=== PATIENT | male | born 1990 | race Caucasian/White ===

== ENCOUNTER → 2018-06-07 | Day surgery (SDC) | payer OTHER ==
[2018-05-29 10:36] VITALS: Ht 175.3 cm; Wt 70.5 kg
[~2018-06-07] VITALS: Ht 175.3 cm; Wt 70.5 kg
[~2018-06-07] MED LIST: CEFAZOLIN 2000MG IV PUSH 15 ML IV SCH; LACTATED RINGER'S 1000ML 1,000 ML IV SCH
== END | disposition home or self-care (01) ==
LOC: EDSTATUS 07:45 → C.PAT 13:13
PROVIDERS: ATTEND Surgery
DX: R19.09 Other intra-abdominal and pelvic swelling, mass and lump (principal); Z53.9 Procedure and treatment not carried out, unspecified reason